=== PATIENT | female | born 1950 | race African-American/Black ===

== ENCOUNTER 2024-04-07 14:53 | Emergency (ER) | payer MEDICARE, SELFPAY ==
[2024-04-07 15:35] VITALS: BP 156/102; PULSE 75; RESP 16; TEMP 36.1; O2SAT 98; BMI 25.8
--- NOTE | 2024-04-07 15:36 | ED.GENADULT ---
HPI - General Adult General Chief complaint: Nausea/Vomiting/Diarrhea Stated complaint: took someone else meds vomiting high bp Related Data Previous Rx's ?Medication ?Instructions ?Recorded cefuroxime axetil 250 mg tablet 250 mg PO BID #14 tabs 04/09/24 meclizine 50 mg tablet 50 mg PO BID PRN dizziness #10 tabs 04/09/24 Allergies Allergy/AdvReac Type Severity Reaction Status Date / Time No Known Allergies Allergy Verified 04/08/24 19:11 [facility] Past Medical History Medical History HTN (hypertension) Social History Social History Smoked in Last 30 Days: Yes Use of substances other than those prescribed or required for medical reasons: No Advance Directives: Yes Advance Directives Information Provided: Yes Advance Directives on File: No Do you have a plan to hurt others: No Plan Physical Exam ED Vital Signs: BMI result Body Mass Index 25.8 Course Course Course Narrative: RME, this is a rapid medical exam performed by Maxwell Martinez please refer to primary provider for complete H&P- 74-year-old female presents for evaluation of vomiting and weakness. She reports that she took 600 mg ibuprofen that does not prescribed to her for back pain. She reports shortly after taking it she had vomiting and weakness. She denies any current pain but presents for persistent vomiting. Plan for labs, viral swabs and ODT Zofran Medications Administered Discontinued Medications Generic Name Dose Route Start Last Admin Trade Name Freq PRN Reason Stop Dose Admin Ondansetron HCl 4 mg 04/07/24 15:37 04/07/24 15:41 Ondansetron Odt 4 Mg Tab.Rapdis TRANSLINGU 04/07/24 15:38 4 mg ONCE ONE Administration Medical Decision Making Lab Data 04/07/24 15:58 04/07/24 15:58 Labs: Lab Results 04/07/24 Range/Units 15:58 WBC 6.3 (4.8-10.8) X10*3/uL RBC 5.05 (4.20-5.50) X10*6/uL Hgb 15.6 (12.0-16.0) g/dl Hct 46.6 (37.0-47.0) % MCV 92.3 (80.0-98.0) fL MCH 30.9 (27.0-33.0) pg MCHC 33.5 (31.0-35.0) g/dl RDW 13.4 (11.0-16.0) % Plt Count 260 (160-400) X10*3/uL MPV 9.6 (9.4-12.3) fL Immature Gran % (Auto) 0.2 (0.0-0.4) % Neut % (Auto) 64.2 (45-73) % Lymph % (Auto) 31.5 (20-40) % Craig % (Auto) 3.6 (2-11) % Eos % (Auto) 0.3 (0-4) % Baso % (Auto) 0.2 (0-2) % Lymph # (Auto) 2.0 (1.2-4.9) X10*3/uL Craig # (Auto) 0.2 (0.1-1.2) X10*3/uL Eos # (Auto) 0.0 (0.0-0.4) X10*3/uL Baso # (Auto) 0.0 (0.0-0.2) X10*3/uL Abs Immat Gran (auto) 0.01 (0.00-0.03) X10*3/uL Absolute Neuts (auto) 4.1 (2.0-8.3) x10*3/uL Absolute Nucleated RBC 0.000 (0.0-0.012) X10*3/uL Nucleated RBC % (auto) 0.0 (0.0-0.2) /100WBC Sodium 143 (135-145) mmol/L Potassium 3.8 (3.3-5.1) mmol/L Chloride 107 (96-108) mmol/L Carbon Dioxide 29 (22-29) mmol/L Anion Gap 11 L (12-20) BUN 16 (9-16) mg/dL Creatinine 0.74 (0.5-1.4) mg/dL Estim Creat Clear Calc 66.0 Estimated GFR > 60 Random Glucose 107 (60-115) mg/dL Calcium 10.3 H (8.4-10.2) mg/dL Total Bilirubin 0.8 (0.0-1.0) mg/dL AST 23 (5-31) U/L ALT 10 (0-31) U/L Alkaline Phosphatase 67 (39-117) U/L Total Protein 8.3 H (6.5-8.0) g/dL Albumin 4.2 (3.5-5.0) g/dL Lipase 15 (8-78) U/L Influenza Type A (PCR) NEGATIVE (Negative) Influenza Type B (PCR) NEGATIVE (Negative) RSV RNA Qual (PCR) NEGATIVE (Negative) SARS-CoV-2 RNA (RT-PCR) NEGATIVE (Negative) Discharge Plan Discharge Clinical Impression: Nausea Patient Disposition: Left W/O Completing Treatment Prescriptions: No Action cefuroxime axetil 250 mg tablet 250 mg PO BID Qty: 14 0RF meclizine 50 mg tablet 50 mg PO BID PRN (Reason: dizziness) Qty: 10 0RF Discharge Date/Time: 04/07/24 19:42
[2024-04-07] MEDS: Ondansetron ODT 4 MG TAB.RAPDIS TRANSLINGU (15:41)
[2024-04-07 16:03] LABS: Hematocrit 46.6 % (37.0-47.0); Hemoglobin 15.6 g/dl (12.0-16.0); MANUAL DIFF FLAG NO; Mean Corpuscular Hemoglobin 30.9 pg (27.0-33.0); Mean Corpuscular Volume 92.3 fL (80.0-98.0); Red Blood Count 5.05 X10*6/uL (4.20-5.50); White Blood Count 6.3 X10*3/uL (4.8-10.8)
[2024-04-07 16:04] LABS: Basophils Percent Auto 0.2 % (0-2); Eosinophils Percent Auto 0.3 % (0-4); Imm Gran Abs Auto 0.01 X10*3/uL (0.00-0.03); Imm Gran Pct Auto 0.2 % (0.0-0.4); Lymphocytes Percent Auto 31.5 % (20-40); Mean Corpuscular HGB Conc 33.5 g/dl (31.0-35.0); Mean Platelet Volume 9.6 fL (9.4-12.3); Monocytes Absolute Auto 0.2 X10*3/uL (0.1-1.2); Monocytes Percent Auto 3.6 % (2-11); Neutrophils Absolute Auto 4.1 x10*3/uL (2.0-8.3); Neutrophils Percent Auto 64.2 % (45-73); Platelet Count 260 X10*3/uL (160-400); Red Cell Distribution Width 13.4 % (11.0-16.0)
[2024-04-07 16:25] LABS: Alanine Aminotransferase 10 U/L (0-31); Albumin Level 4.2 g/dL (3.5-5.0); Alkaline Phosphatase 67 U/L (39-117); Anion Gap 11 (12-20); Aspartate Amino Transferase 23 U/L (5-31); Bilirubin Total 0.8 mg/dL (0.0-1.0); Blood Urea Nitrogen 16 mg/dL (9-16); Calcium 10.3 mg/dL (8.4-10.2); Carbon Dioxide 29 mmol/L (22-29); Chloride 107 mmol/L (96-108); Estimated Glomerular Filt Rate > 60; Glucose Random 107 mg/dL (60-115); Lipase 15 U/L (8-78); Potassium 3.8 mmol/L (3.3-5.1); Sodium 143 mmol/L (135-145); Total Protein 8.3 g/dL (6.5-8.0)
[2024-04-07 16:45] LABS: Influenza A PCR NEGATIVE (Negative); Influenza B PCR NEGATIVE (Negative); Resp Syncy Virus RNA Qual PCR NEGATIVE (Negative); SARS COV2 PCR INHOUSE NEGATIVE (Negative)
== END 2024-04-07 19:42 | disposition left against medical advice (07) ==
LOC: HO.ED 19:41
PROVIDERS: Physician Assistant; Emergency Provider Emergency Medicine; PCP Internal Medicine
DX: R11.2 Nausea with vomiting, unspecified (principal); R53.1 Weakness; Z03.818 Encounter for observation for suspected exposure to other biological agents ruled out
CPT/HCPCS: 0241U; 36415; 80053; 83690; 85025; 99281; 99283

== ENCOUNTER 2024-04-08 17:43 | Emergency (ER) | payer MEDICARE, SELFPAY ==
--- NOTE | ~2024-04-08 | CT_ITS ---
CLINICAL HISTORY: dizziness CT of the head without intravenous contrast Comparison: None Findings: The ventricles and sulci are prominent, consistent with generalized cerebral parenchymal volume loss. The ventricles are symmetric and the basilar cisterns are intact. Mild periventricular, deep and subcortical white matter hypodensities are nonspecific but statistically reflect the sequela of chronic small vessel ischemic change. No intracranial hemorrhage, extra-axial fluid collection, midline shift or mass-effect is evident. No evidence of acute large vessel or territorial ischemia. Brainstem and cerebellum unremarkable. Vascular calcifications indicate intracranial atherosclerosis. The imaged portion of the paranasal sinuses are clear. No mastoid effusions are demonstrated. The orbital contents are unremarkable. Calvarium is intact. Impression: 1. No CT evidence of acute intracranial abnormality. 2. Cerebral volume loss, intracranial atherosclerotic disease and mild sequela of chronic small vessel ischemic disease. This document has been electronically signed by: Olegario Harley MD on 04/08/2024 20:14:27
--- NOTE | 2024-04-08 19:05 | ED_ITS ---
HPI - General Adult General Chief complaint: General Medical Stated complaint: dizziness/was here last night Time Seen by Provider: 04/09/24 01:20 Source: patient Mode of arrival: ambulatory Limitations: no limitations History of Present Illness ED Provider: Dr. Yamilet Ayon HPI narrative: Patient comes to the emergency room complaining of 1 month of intermittent dizziness. Patient describes dizziness as unsteadiness. Patient states that sometimes it happens when she stands up, sometimes when she is laying down. Patient states her symptoms are not new, present for a month. At this time, patient has no dizziness. Patient denies any fall, denies being on blood thinners. Related Data Previous Rx's ?Medication ?Instructions ?Recorded cefuroxime axetil 250 mg tablet 250 mg PO BID #14 tabs 04/09/24 meclizine 50 mg tablet 50 mg PO BID PRN dizziness #10 tabs 04/09/24 Allergies Allergy/AdvReac Type Severity Reaction Status Date / Time No Known Allergies Allergy Verified 04/08/24 19:11 Review of Systems 2 Review of Systems: Constitutional : No Weight loss, No Fever, No Chills, No Night Sweats, No Fatigue, No Malaise ENT/Mouth : No Hearing loss, No Ear Pain, No Nasal Congestion, No Sinus Pain, No Hoarseness, No sore throat, No Rhinorrhea, No Swallowing Difficulty Eyes: No Eye Pain, No Swelling, No Redness, No Foreign Body, No Discharge, No Vision Changes Cardiovascular : No Chest Pain, No SOB, No Dyspnea on Exertion, No Orthopnea, No Edema, No Palpitations Respiratory : No Cough, No Sputum, No Wheezing, No Smoke Exposure, No Dyspnea Gastrointestinal : No Nausea, No Vomiting, No Diarrhea, No Constipation, No abdominal Pain, No Hematochezia, No Melena Genitourinary : no irregular bleeding, No Dysuria, No Urinary Frequency, No Hematuria, No Urinary Incontinence, No Urgency, No Flank Pain, No Urinary Flow Changes, No Hesitancy Musculoskeletal : No joint pain, No Myalgias, No Joint Swelling Skin : No Skin Lesions, No rash Neuro : No Weakness, No Numbness, No Paresthesias, No Loss of Consciousness, complaining of Dizziness, No Headache Psych : No Anxiety/Panic, No Depression, No SI/HI/AH/VH, No Social Issues, Heme/Lymph: No Bruising, No Bleeding,No Lymphadenopathy Endocrine : No Polyuria, No Polydipsia, No Temperature Intolerance [facility] Past Medical History Medical History HTN (hypertension) Social History Social History Smoked in Last 30 Days: Yes Use of substances other than those prescribed or required for medical reasons: No Advance Directives: Yes Advance Directives Information Provided: Yes Advance Directives on File: No Do you have a plan to hurt others: No Plan Physical Exam ED Vital Signs: Vital Signs - 24 hr 04/08/24 19:08 04/08/24 23:26 04/09/24 01:38 Temperature 98.7 F 98.5 F Pulse Rate 89 90 83 Respiratory Rate 16 20 Blood Pressure 144/87 H 125/87 167/113 H Pulse Oximetry 98 97 Oxygen Delivery Method Room Air Room Air 04/09/24 01:42 04/09/24 01:43 Temperature Pulse Rate 84 108 H Respiratory Rate Blood Pressure 154/92 H 132/105 H Pulse Oximetry Oxygen Delivery Method BMI result Body Mass Index 22.0 Const Other: Appearance: Alert. Oriented X3. No acute distress. Eyes: Pupils equal, round and reactive to light. ENT: Pharynx normal. Neck: Normal inspection. Neck supple. No lymph nodes noted. No crepitus CVS: Normal heart rate and rhythm. Pulses normal. Normal S1 and S2 Respiratory: No respiratory distress. Breath sounds normal. No Wheezing. No rales Abdomen: Soft and nontender. No rigidity. No distention. Skin: Skin warm and dry. Normal skin color. Normal skin turgor. Extremities: No lower extremity edema. No Lacerations. No Rash Neuro: Oriented X 3. No motor deficit. No sensory deficit. Moving all extremities. No slurred speech. CN 2 through 12 grossly intact Psych: calm, cooperative, normal affect NIH Stroke Scale Internal: Initial- Upon Arrival Time: 19:07 Level of Consciousness: Alert Level of Consciousness Questions: Answers both questions correctly Level of Consciousness Commands: Performs both tasks correctly Best Gaze: Normal Visual: No visual loss Facial Palsy: Normal Motor Arm (Right): No drift Motor Arm (Left): No drift Motor Leg (Right): No drift Motor Leg (Left): No drift Limb Ataxia: Absent Sensory: Normal Best Language: No aphasia Dysarthia: Normal Extinction and Inattention: No abnormality Score: 0 Course Course Course Narrative: This is a rapid medical exam performed by Humera Smith NP: Additional HPI, ROS, PE not included below will be deferred to primary provider. Patient is a 74-year-old female presenting with complaint of intermittent dizziness. Was here yesterday but left from the without completing treatment. Called PCP today who told patient to return for CT head. Dizziness occurs with position changes. NIHSS 0. Plan: EKG, labs, viral serology, CT head Medications Administered Discontinued Medications Generic Name Dose Route Start Last Admin Trade Name Frejayde PRN Reason Stop Dose Admin Cefuroxime Axetil 250 mg 04/09/24 01:33 04/09/24 01:46 Cefuroxime Axetil 250 Mg Tablet PO 04/09/24 01:34 250 mg ONCE ONE Administration Meclizine HCl 50 mg 04/09/24 01:33 04/09/24 01:46 Meclizine Hcl 25 Mg Tablet PO 04/09/24 01:34 50 mg ONCE ONE Administration Medical Decision Making Medical Decision Making [facility] Narrative: My interpretation of labs: Normal hematology, normal chemistry, normal troponin, serology negative for influenza COVID and RSV My interpretation of EKG: Normal sinus rhythm, heart rate 64, no ST segment depression or elevation, no T-wave inversion, QTC [address] scan, no obvious abnormality. Patient's symptoms have been intermittent for over a month. No obvious CT scan findings. Patient eventually will likely need a referral to Neurology through her primary care physician. Patient does have a UTI. Unlikely that this is causing patient's symptoms. However, since patient is symptomatic we will go ahead and treat with antibiotics. Also given meclizine. Orthostatic vitals were positive, a 20 mmHg drop from sitting to standing. However, patient did not report any dizziness. IV fluids were ordered but patient would like to be discharged home. Discussed with the patient that she needs to increase her fluid intake, agrees with plan. Differential Diagnosis Differential Diagnoses: The differential diagnosis associated with the presentation includes (UTI, orthostatic hypotension, vertigo, BPPV) Admission/Observation Consideration of admission/observation: Escalation of care including admission/observation considered (Given patient's symptoms and age, observation was considered.) Lab Data [facility] Lab Attestation statement: I reviewed the patient's lab results. 04/08/24 19:35 04/08/24 19:35 Labs: Lab Results 04/08/24 Range/Units 19:35 WBC 6.0 (4.8-10.8) X10*3/uL RBC 5.14 (4.20-5.50) X10*6/uL Hgb 16.1 H (12.0-16.0) g/dl Hct 47.2 H (37.0-47.0) % MCV 91.8 (80.0-98.0) fL MCH 31.3 (27.0-33.0) pg MCHC 34.1 (31.0-35.0) g/dl RDW 13.2 (11.0-16.0) % Plt Count 269 (160-400) X10*3/uL MPV 9.8 (9.4-12.3) fL Immature Gran % (Auto) 0.3 (0.0-0.4) % Neut % (Auto) 45.9 (45-73) % Lymph % (Auto) 47.4 H (20-40) % Morrill % (Auto) 5.3 (2-11) % Eos % (Auto) 0.8 (0-4) % Baso % (Auto) 0.3 (0-2) % Lymph # (Auto) 2.8 (1.2-4.9) X10*3/uL Morrill # (Auto) 0.3 (0.1-1.2) X10*3/uL Eos # (Auto) 0.1 (0.0-0.4) X10*3/uL Baso # (Auto) 0.0 (0.0-0.2) X10*3/uL Abs Immat Gran (auto) 0.02 (0.00-0.03) X10*3/uL Absolute Neuts (auto) 2.7 (2.0-8.3) x10*3/uL Absolute Nucleated RBC 0.000 (0.0-0.012) X10*3/uL Nucleated RBC % (auto) 0.0 (0.0-0.2) /100WBC PT 12.1 (10.9-12.4) SEC INR 1.0 (0.9-1.1) Sodium 144 (135-145) mmol/L Potassium 3.4 (3.3-5.1) mmol/L Chloride 105 (96-108) mmol/L Carbon Dioxide 30 H (22-29) mmol/L Anion Gap 12 (12-20) BUN 17 H (9-16) mg/dL Creatinine 0.85 (0.5-1.4) mg/dL Estim Creat Clear Calc 52.7 Estimated GFR > 60 Random Glucose 121 H (60-115) mg/dL Calcium 9.9 (8.4-10.2) mg/dL Total Bilirubin 0.8 (0.0-1.0) mg/dL AST 22 (5-31) U/L ALT 16 (0-31) U/L Alkaline Phosphatase 62 (39-117) U/L Troponin I High Sens < 2.7 (<3.5-17.0) ng/L Total Protein 8.1 H (6.5-8.0) g/dL Albumin 4.2 (3.5-5.0) g/dL Urine Color Dark Yellow Urine Appearance Cloudy Urine pH 5.5 (5.0-9.0) Ur Specific [place] 1.025 (1.005-1.025) Urine Protein Negative (Neg-Trace) mg/dL Urine Glucose (UA) Negative (Negative) mg/dL Urine Ketones Negative (Negative) mg/dL Urine Blood Trace H (Negative) Urine Nitrite Negative (Negative) Ur Leukocyte Esterase Moderate (2+) H (Negative) Urine RBC 3-5 H (0-2) /HPF Urine WBC 21-50 H (0-5) /HPF Ur Squamous Epith Cells 6-10 (0-2) /HPF Urine Bacteria 4+ (None Seen) Hyaline Casts 0-2 (0-2) /LPF Influenza Type A (PCR) NEGATIVE (Negative) Influenza Type B (PCR) NEGATIVE (Negative) RSV RNA Qual (PCR) NEGATIVE (Negative) SARS-CoV-2 RNA (RT-PCR) NEGATIVE (Negative) Discharge Plan Discharge Clinical Impression: Dizziness, Acute UTI, Orthostatic hypotension Patient Disposition: Home, Self-Care Instructions: Dizziness (ED), Urinary Tract Infection in Older Adults (ED), Hypotension (ED) Additional Instructions: Please follow-up with your primary care physician tomorrow. If you have any worsening or new symptoms, please return to the emergency room or call 911 Prescriptions: New cefuroxime axetil 250 mg tablet 250 mg PO BID Qty: 14 0RF meclizine 50 mg tablet 50 mg PO BID PRN (Reason: dizziness) Qty: 10 0RF Print Language: Kyrgyz
--- NOTE | 2024-04-08 19:07 | ECG_ITS ---
Test Reason : dizzy Blood Pressure : */* mmHG Vent. Rate : 73 BPM Atrial Rate : 73 BPM P-R Int : 170 ms QRS Dur : 64 ms QT Int : 366 ms P-R-T Axes : 48 -1 111 degrees QTcB Int : 403 ms Normal sinus rhythm with sinus arrhythmia Inferior infarct , age undetermined Anterior infarct , age undetermined Abnormal ECG No previous ECGs available Referred By: Brie Smith Electronically Signed By: DALE RUVALCABA MD
[2024-04-08 19:08] VITALS: BP 144/87; PULSE 89; RESP 16; TEMP 37.1; O2SAT 98; BMI 22.0
[2024-04-08 19:47] LABS: MANUAL DIFF FLAG NO
[2024-04-08 19:54] LABS: Appearance Urine Cloudy; Color Urine Dark Yellow; Glucose Urine UA Negative (Negative); Leukocyte Esterase Urine Moderate (2+) (Negative); Nitrite Urine Negative (Negative); PH 5.5 (5.0-9.0); Specific Gravity - Urine 1.025 (1.005-1.025); UMIC TRIGGER UACC YES; Urine Blood Trace (Negative); Urine Ketones Negative (Negative); Urine Protein Negative (Neg-Trace)
[2024-04-08 19:55] LABS: Prothrombin Time 12.1 SEC (10.9-12.4)
[2024-04-08 19:58] LABS: Basophils Percent Auto 0.3 % (0-2); Eosinophils Absolute Auto 0.1 X10*3/uL (0.0-0.4); Eosinophils Percent Auto 0.8 % (0-4); Hematocrit 47.2 % (37.0-47.0); Hemoglobin 16.1 g/dl (12.0-16.0); Imm Gran Abs Auto 0.02 X10*3/uL (0.00-0.03); Imm Gran Pct Auto 0.3 % (0.0-0.4); Lymphocytes Absolute Auto 2.8 X10*3/uL (1.2-4.9); Lymphocytes Percent Auto 47.4 % (20-40); Mean Corpuscular HGB Conc 34.1 g/dl (31.0-35.0); Mean Corpuscular Hemoglobin 31.3 pg (27.0-33.0); Mean Corpuscular Volume 91.8 fL (80.0-98.0); Mean Platelet Volume 9.8 fL (9.4-12.3); Monocytes Absolute Auto 0.3 X10*3/uL (0.1-1.2); Monocytes Percent Auto 5.3 % (2-11); Neutrophils Absolute Auto 2.7 x10*3/uL (2.0-8.3); Neutrophils Percent Auto 45.9 % (45-73); Platelet Count 269 X10*3/uL (160-400); Red Blood Count 5.14 X10*6/uL (4.20-5.50); Red Cell Distribution Width 13.2 % (11.0-16.0)
[2024-04-08 20:00] LABS: Bacteria Urine 4+ (None Seen); Hyaline Casts Urine 0-2 /LPF (0-2); UACC Culture Trigger YES; WBC Urine 21-50 /HPF (0-5)
[2024-04-08 20:04] LABS: Alanine Aminotransferase 16 U/L (0-31); Albumin Level 4.2 g/dL (3.5-5.0); Alkaline Phosphatase 62 U/L (39-117); Anion Gap 12 (12-20); Aspartate Amino Transferase 22 U/L (5-31); Bilirubin Total 0.8 mg/dL (0.0-1.0); Blood Urea Nitrogen 17 mg/dL (9-16); Calcium 9.9 mg/dL (8.4-10.2); Carbon Dioxide 30 mmol/L (22-29); Chloride 105 mmol/L (96-108); Creatinine Clr Calc Pharmacy 52.7; Estimated Glomerular Filt Rate > 60; Glucose Random 121 mg/dL (60-115); Potassium 3.4 mmol/L (3.3-5.1); Sodium 144 mmol/L (135-145); Total Protein 8.1 g/dL (6.5-8.0)
[2024-04-08 20:13] LABS: Troponin-I High Sensitivity < 2.7 ng/L (<3.5-17.0)
[2024-04-08 20:27] LABS: Influenza A PCR NEGATIVE (Negative); Influenza B PCR NEGATIVE (Negative); Resp Syncy Virus RNA Qual PCR NEGATIVE (Negative); SARS COV2 PCR INHOUSE NEGATIVE (Negative)
--- OUTSIDE RECORDS SUMMARY | 2024-04-08 22:35 | XMS_ITS | Encounter Summary ---
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 Name Role Phone Bao Woodson MD Primary Care Provider [phone] Reason for Visit * Reason Onset Date Comments Vertigo 04/08/2024 Encounter Details Date Type Department Care Team (Late st Contact Info) Description 04/08/2024 Nurse Triage Adult Medicine [address] [phone] Bao Woodson MD [address] [place] [id number] Vertigo Social History Tobacco Use Types Packs/Day Years Used Date Smoking Tobacco: Every Day Smokeless Tobacco: Never Alcohol Use Standard Drinks/Week Comments Yes 0 (1 standard drink = 0.6 oz pur e alcohol) Sex and Gender Information Value Date Recorded Sex Assigned at Not on file Gender Identity Not on file Sexual Orientation Not on file documented as of this encounter Progress Notes * Leticia Smith RN - 04/08/2024 4:41 PM EST Pt went to [facility] ER yesterday and she left before she could be evaluated. She was instructed to take her mom back to the ER for further evaluation and treatment. She is in agreement with this plan. Reason for Disposition [1] Dizziness (vertigo) present now AND [2] one or more STROKE RISK FACTORS (i.e., hypertension, diabetes, prior stroke/TIA, heart attack) (Exception: Prior doctor or INSPECTOR [employer]SEM[employer] MECH[employer]ICAL/PA evaluation for this AND nodifferent/worse than usual.) Answer Assessment - Initial Assessment Questions 1. DESCRIPTION: Describe your dizziness. She feels as if she will fall over. 2. VERTIGO: Do you feel like either you or the room is spinning or tilting? yes 3. LIGHTHEADED: Do you feel lightheaded? (e.g., somewhat faint, woozy, weak upon standing) She feels dizzy upon standing. 4. SEVERITY: How bad is it? Can you walk? - MILD: Feels slightly dizzy and unsteady, but is walking normally. - MODERATE: Feels unsteady when walking, but not falling; interferes with normal activities (e.g., school, work). - SEVERE: Unable to walk without falling, or requires assistance to walk without falling. Moderate 5. ONSET: When did the dizziness begin? 1-2 weeks 6. AGGRAVATING FACTORS: Does anything make it worse? (e.g., standing, change in head position) Standing 7. CAUSE: What do you think is causing the dizziness? Unknown 8. RECURRENT SYMPTOM: Have you had dizziness before? If Yes, ask: When was the last time? Whathappened that time? Yes in the past but did not see MD 9. OTHER SYMPTOMS: Do you have any other symptoms? (e.g., earache, headache, numbness, tinnitus, vomiting, weakness) No other symptoms 10. : Is there any chance you are ? When was your last menstrual period? No pt is 74 Protocols used: Dizziness - [id number] * Dianne Joyner MA - 04/08/2024 4:27 PM EST Pt's daughter Caitlyn returning Leticia's call from today. * Leticia Smith RN - 04/08/2024 4:02 PM EST I left a message for Caitlyn to call the office at . * Mercedez Montenegro - 04/08/2024 3:41 PM EST Patient call requires triage: Symptoms patient is presenting: VERTIGO How long has patient had these symptoms?: 2 DAYS For ALL patients calling to schedule any appointment (routine, sick visit, follow up, consult, etc.) in the outpatient setting please ask the following questions: Do you have fever of higher than 101, sore throat with difficulty swallowing or severe shortness ofbreath? no If YES to any of these above symptoms, send a message to triage and do not book. Red dot. If no, an audio or video visit should be booked. Have you had close contact with someone with Coronavirus in the last 14 days? no Have you traveled abroad? no Have you traveled recently to another state outside of [place], [place], [place], [place], [place], [place], [place]? no o If yes, did you quarantine for 14 days or have a negative covid test? no If yes to any of the above, patient is not to be scheduled in office until after 14 day quarantine or negative covid test. If pain or injury related was it due to an accident at work or from a motor vehicle accident? If yes, date of accident/Injury: No If yes, gather 3rd democrat insurance information Third Libertarian Information: not applicable PCP: Bao Woodson MD Payor: / No coverage found. documented in this encounter Plan of Treatment Not on file documented as of this encounter Visit Diagnoses Not on filedocumented in this encounter Care Teams Tape Cutting Machine Operator Relationship Specialty Start Date End Date Bao Woodson MD PCP - General Internal Medicine 11/17/13 documented as of this encounter
--- OUTSIDE RECORDS SUMMARY | 2024-04-08 22:35 | XMS_ITS ---
Author Name Acacia Licea NP Address [address] [place] [address] Phone [phone] Organization [facility] Care Team Providers Care Compliance Review Specialist Name Role Phone Acacia Licea Unavailable [phone] Joy Lawton Unavailable [phone] Unavailable Unavailable Unavailable Reason for Referral Not Available Allergies, adverse reactions, alerts No known allergies History of medication use Medication Class Instructions Start Date End Date Lisinopril 40 mg Tab TAKE 1 TABLET BY [facility] DAILY 2022-05-01 No Data Available PARoxetine 40 mg Tab TAKE 1 TABLET BY [facility] EVERY MORNING 2022-05-01 No Data Available Vitamin D (Ergocalciferol) 1 .25 mg (02433 UT) Cap TAKE 1 CAPSULE BY MOUTH 1 TIME A WEEK 2023-06-29 No Data Available hydroCHLOROthiazide 25 mg Tab TAKE 1 TAB LET BY MOUTH DAILY 2023-09-16 No Data Available Aspirin 81 mg Tab delayed rel take 1 tab let orally once daily 2023-10-15 No Data Available Problem List Problem Status Onset Date Resolved Date Major depressive disorder, recurrent Active 2022 N/A Essential hypertension Active 2022-10-23 N/A Osteopenia Active 2023-10-15 N/A Other problems related to [facility] facilities and other health care Active 2023-10-15 N/A Stage 3a chronic kidney disease (CKD) Active 06-21-00 N/A Encounters Encounters Type Facility Date of Service Diagnosis/Co mplaint New patient,40-59min; chronic exacerbation, 2 stable chronic or 1 acute illness add add modifier 95 for video (do not use for phone, instead use [id number]) [facility] 10[place]22/2022 Major depressive disorder, recurrent, unspecifiedEssential (primary) hypertensionOther muscle spasmInsomnia, unspecified New patient,40-59min; chronic exacerbation, 2 stable chronic or 1 acute illness add add modifier 95 for video (do not use for phone, instead use 82586-73) [facility] 10[place]22/2022 New patient,40-59min; chronic exacerbation, 2 stable chronic or 1 acute illness add add modifier 95 for video (do not use for phone, instead use 03977-54) [facility] 10/22/2022 New patient,40-59min; chronic exacerbation, 2 stable chronic or 1 acute illness add add modifier 95 for video (do not use for phone, instead use 47672-40) [facility] 10/22/2022 New patient,40-59min; chronic exacerbation, 2 stable chronic or 1 acute illness add add modifier 95 for video (do not use for phone, instead use 28328-85) [facility] 10/22/2022 New patient,40-59min; chronic exacerbation, 2 stable chronic or 1 acute illness add add modifier 95 for video (do not use for phone, instead use 30034-21) [facility] 10/22/2022 New patient,40-59min; chronic exacerbation, 2 stable chronic or 1 acute illness add add modifier 95 for video (do not use for phone, instead use 63374-02) [facility] 10/22/2022 New patient,40-59min; chronic exacerbation, 2 stable chronic or 1 acute illness add add modifier 95 for video (do not use for phone, instead use 58502-61) [facility] 10/22/2022 Estab. patient 30-39min; chronic exacerbation, 2 stable chronic or 1 acute illness add add modifier 95 for video, (do not use for phone, instead use 82968-45) [facility] 10/15/2023 Major depressive disorder, recurrent, unspecifiedChronic kidney disease, stage 3aHypertensive chronic kidney disease w stg 1-4/unsp chr kdnyOth disrd of bone density and structure, unspecified siteOther problems related to medical facilities and other health care Estab. patient 30-39min; chronic exacerbation, 2 stable chronic or 1 acute illness add add modifier 95 for video, (do not use for phone, instead use 94584-56) [facility] 10/15/2023 Estab. patient 30-39min; chronic exacerbation, 2 stable chronic or 1 acute illness add add modifier 95 for video, (do not use for phone, instead use 71440-47) [facility] 10/15/2023 Estab. patient 30-39min; chronic exacerbation, 2 stable chronic or 1 acute illness add add modifier 95 for video, (do not use for phone, instead use 61250-98) [facility] 10/15/2023 Estab. patient 30-39min; chronic exacerbation, 2 stable chronic or 1 acute illness add add modifier 95 for video, (do not use for phone, instead use 15086-23) [facility] 10[place]15/2023 Estab. patient 30-39min; chronic exacerbation, 2 stable chronic or 1 acute illness add add modifier 95 for video, (do not use for phone, instead use 54615-21) [facility] 10[place]15/2023 Estab. patient 30-39min; chronic exacerbation, 2 stable chronic or 1 acute illness add add modifier 95 for video, (do not use for phone, instead use 30793-14) [facility] 10/15/2023 Estab. patient 30-39min; chronic exacerbation, 2 stable chronic or 1 acute illness add add modifier 95 for video, (do not use for phone, instead use 19938-87) [facility] 10[place]15/2023 Estab. patient 30-39min; chronic exacerbation, 2 stable chronic or 1 acute illness add add modifier 95 for video, (do not use for phone, instead use 70307-37) [facility] 10/15/2023 Estab. patient 30-39min; chronic exacerbation, 2 stable chronic or 1 acute illness add add modifier 95 for video, (do not use for phone, instead use 61678-35) [facility] 10/15/2023 Vital Signs Date of Collection Vitals 2022-10-22 10:37:42 Height - 170.18 cmWe ight - 71.21 kgBody Mass Index (BMI) - 24.59 kg/m2BP Diastolic - 78.0 mm[Hg]BP Systolic - 120.0 mm[Hg] 2023-10-15 11:23:41 Height - 167.64 cmWe ight - 71.21 kgBody Mass Index (BMI) - 25.34 kg/m2BP Diastolic - 88.0 mm[Hg]BP Systolic - 138.0 mm[Hg]Pain Scale - 8.0 {score} Social History Social History Social History Observation Description Effec tive Time Current Smoking Status Current every day smoker 2024-04-09 Sex Female History of Procedures Procedures Service Procedure code Service date Servicing provider Phone# New patient,40-59min; chronic exacerbation, 2 stable chronic or 1 acute illness add add modifier 95 for video (do not use for phone, instead use 72037-23) 15604 2022-10-22 No Data Available No Data Availa ble Functional Status Assessed (1170F) 1170F 2022-10-22 No Data Available No Data Avail able Medication List Documented (1159F) 1159F 2022-10-22 No Data Available No Data Arianna ilable Medication Review by prescribing provider or pharmacist documented (1160F) 1160F 2022-10-22 No Data Available No Data Arianna ilable Advance Care Directive Advance care planning discussion documented in the medical record (1158F) 1158F 2022-10-22 No Data Available No Data Availa ble BMI obtained (3008F) 3008F 2022-10-22 No Data Availab le No Data Available SBP < 130 (3074F) 3074F 2022-10-22 No Data Available No Data Available DBP <80 (3078F) 3078F 2022-10-22 No Data Available No Data Available Estab. patient 30-39min; chronic exacerbation, 2 stable chronic or 1 acute illness add add modifier 95 for video, (do not use for phone, instead use 53999-39) 97557 2023-10-15 No Data Available No Data Availa ble Medication Review by prescribing provider or pharmacist documented (1160F) 1160F 2023-10-15 No Data Available No Data Arianna ilable Medication List Documented (1159F) 1159F 2023-10-15 No Data Available No Data Arianna ilable Functional Status Assessed (1170F) 1170F 2023-10-15 No Data Available No Data Avail able SBP 130-139 (3075F) 3075F 2023-10-15 No Data Availabl e No Data Available DBP 80-89 (3079F) 3079F 2023-10-15 No Data Available No Data Available BMI obtained (3008F) 3008F 2023-10-15 No Data Availab le No Data Available Pain Assessment - Pain Documented (1125F) 1125F 2023-10-15 No Data Available No Data Availa ble Advance Care Directive Advance care planning discussion documented in the medical record (1158F) 1158F 2023-10-15 No Data Available No Data Availa ble Advance care planning discussed and documented ? advance care plan or surrogate decision-maker was documented in the medical record. (1123F) 1123F 2023-10-15 No Data Available No Data Availa ble Functional Status Functional Category Effective Dates ADL: Bathing Independent , D ressing Independent , Eating Independent , Ambulation Independent , Transferring Independent and Toileting Independent 2022-10-23 IADL: Medication Independent , Meal Prep Independent , Shopping Needs Assistance , Driving or Public Transport Needs Assistance and Housework Needs Assistance 2022-10-23 Falls in last 6 Months: Near Fall 8-10 Social Supports - # of Inter actions with Friends/Family in a typical week: 2022-10-23 DME: Walker, Cane, Shower Chair Mental Status Status Date Cognition Status: Alert and Oriented to Person, Place, and Time 2023-10-15 Assessments Date of Service Assessments 2022-10-22 10:37:42 Essential hypertensi onMuscle spasms of both lower extremitiesMajor depressive disorder, recurrentInsomnia 2023-10-15 11:23:41 Major depressive dis order, recurrentStage 3a chronic kidney disease (CKD)Essential hypertensionOsteopeniaOther problems related to medical facilities and other health care Plan of Care Date of Service Plans 2022-10-22 10:37:42 Medication Review by prescribing provider or pharmacist documented (1160F)Medication List Documented (1159F)Functional Status Assessed (1170F)Advance Care Directive Advance care planning discussion documented in the medical record (1158F)BMI obtained (3008F)SBP < 130 (3074F)DBP <80 (3078F)Televideo new patient,40-59min; chronic exacerbation, 2 stable chronic or 1 acute illness add modifier 95Advance care planning discussed and documented ? advance care plan or surrogate decision-maker was documented in the medical record. (1123F)Advance care planning discussed and documented in the medical record ? beneficiary/patient did not wish to or was unable to provide an advance care plan or name a surrogate decision-maker. (1124F)Continue to see PCP. Follow-up with [facility] as needed for any acute or disease education needs that may arise.cont lisinoprillow na dietmtr bpfu w PCP, encouraged pt to make apptencouraged pt to make appt w pcp for lab work, and eval of muscle spasmsdtr to call todaycont paroxetinemtr symptomsfu w MDused to be on trazodone, doesnt like howit makes her feel so she stoppeddiscussed alternative medications to mention to pcp at fu appt 2023-10-15 11:23:41 Televideo 30-39min; chronic exacerbation, 2 stable chronic or 1 acute illness add modifier 95Functional Status Assessed (1170F)Pain Assessment - NO pain documented (1126F)BMI obtained (3008F)Advance Care Directive Advance care planning discussion documented in the medical record (1158F)Advance care planning discussed and documented ? advance care plan or surrogate decision-maker was documented in the medical record. (1123F)SBP 130-139 (3075F)DBP 80-89 (3079F)Medication List Documented (1159F)Medication Review by prescribing provider or pharmacist documented (1160F)Continue to see PCP. Follow-up with [facility] as needed for any acute or disease education needs that may arise.RX: ParoxetineNotify provider with any changes in behavior, difficulty sleeping, or new/worsening depressive symptoms.Continue to follow up with PCP.Avoid nephrotoxic medications. Recommend talking to PCP regarding HCTZ- stopping/ changing medication. Continue to follow up with PCP.RX: HCTZ, Lisinopril Encourage low sodium diet. Encouraged daily blood pressure checks and tracking. Instructed patient to notify CB or PCP if blood pressure >140/90 or <90/50.Continue to follow up with PCP.Weight bearing exercises such as walking. Continue to follow up with PCP.HYPERTENSION CONTINGENCY PLANMember to call for the following symptoms: BP >180/100??/ Chest pain??/ HeadachePlanned intervention: Assess for signs of end organ damage (headache, vision changes, chest pain)/ Senior Production Planner on proper BP monitoring technique and reassess/ Add amlodipine 5mg daily/ Encourage low sodium diet/ Encourage medication adherenceAt least 50% of time spent counseling patient, discussing diagnosis, treatment plan, compliance, and coordinating follow up care. Goals Date Goal 2023-10-15 Continue taking medi cations as directed and keep all follow up appointments with established PCP and Specialist. Health Concerns Date Concern 2023-10-15 Visit completed in g audio/video. Patient/Guardian agreed to visit via telehealth. Today, patient has chief complaint of: follow up care and comprehensive review.Reviewed Allergies, Medications, Active Medical conditions, past medical/surgical history, Social history. 2023-10-15 Most recent hospital stay(s) or ER visit(s) and precipitating factors: Member reports overnight hospitalization
--- OUTSIDE RECORDS SUMMARY | 2024-04-08 22:35 | XMS_ITS | Clinical Summary ---
Author Organization [facility] it Address [address] [place] [address] Care Team Providers Care Family Service Caseworker Name Role Phone Bao Woodson MD Primary Care Provider [phone] Allergies Active Allergy Reactions Criticality Noted Date Comments Amlodipine 04/28/2017 Dizziness, Fatigue Other 10/20/2014 Seasonal Medications Medication Sig Dispensed Refills Start Date End Date Status hydroCHLOROthiazide (HYDRODIURIL) 25 mg tablet Take 1 tablet (25 mg total) by mouth 1 (one) time each day. 09/16/2023 Active lisinopril (PRINIVIL,ZESTRIL) 40 mg tablet Take 1 tablet (40 mg total) by mouth 1 (one) time each day. 09/16/2023 Active ergocalciferol (VITAMIN D-2) 1,250 mcg (50,000 unit) capsule Take 1 Capsule by mouth once a week. 06/29/2023 Active Active Problems Problem Noted Date Diagnosed Date Degenerative joint disease (DJD) of lumbar spine 03/14/2024 DJD (degenerative joint disease) of knee 024 Essential hypertension, benign 03/14/2024 Osteopenia 04/04/2022 CKD (chronic kidney disease) stage 3, GFR 30-59 ml/min 03/24/2022 Overweight (BMI 25.0-29.9) 03/19/2022 Prediabetes 03/19/2022 Vitamin D deficiency 02/08/2019 Anxiety and depression 05/12/2018 Insomnia 05/12/2018 Polyp of sigmoid colon 08/21/2017 Encounters Date Type Department Care Team Description 04/08/2024 Nurse Triage Adult Medicine [address] [phone] Bao Woodson MD Vertigo 04/07/2024 Nurse Triage Adult Medicine [address] [phone] Bao Woodson MD Vomiting; Back Pain; Hypertension from Last 3 Months Immunizations Name Administration Dates Next Due Influenza trivalent, 0.5mL ( Fluad) 65yo and older 03/31/2021,01/20/2020,02/15/2018,2016,03/04/2016,11/30/2014 Pneumococcal conjugate 13 va lent (Prevnar 13, PCV13) 2mo and older 02/23/2017 Pneumococcal conjugate 20 va lent (Prevnar 20, PCV 20) 2mo and older 03/14/2022 Td Tetanus diptheria (Tdvax) 7yo and older 02/23/2017 Surgical History Surgery Date Site/Laterality Comments BREAST BIOPSY PROCEDURE: BX BREAST; PERC NEEDLE CORE W/IMAG GUID; COMMENT: LT. BREAST BX-BENIGN COLONOSCOPY 09/03/2010 PROCEDURE: HISTORICAL COLONOSCOPY; COMMENT: [facility]. Normal mucosa. Poylp in sigmoid colon. No diverticula and no hemorrhoids. F/u in 5 years. 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 ( DJD) of lumbar spine DX:Degenerative joint diseas e (DJD) of lumbar spine Family History Medical History Relation Name Comments Hypertension Brother Other cancer Daughter leukemia(fatal) Hypertension Father Hypertension Mother Diabetes Sister 1 Hypertension Sister 2 Breast cancer Neg Hx Relation Name Status Comments Brother Daughter Father Mother Sister 1 Sister 2 Social History Tobacco Use Types Packs/Day Years Used Date Smoking Tobacco: Every Day Smokeless Tobacco: Never Alcohol Use Standard Drinks/Week Comments Yes 0 (1 standard drink = 0.6 oz pur e alcohol) Sex and Gender Information Value Date Recorded Sex Assigned at Not on file Gender Identity Not on file Sexual Orientation Not on file Obstetrics History Last Filed Vital Signs Vital Sign Reading Time Taken Comments Blood Pressure 140/92 09/16/2023 2:00 PM EDT Pulse 68 09/16/2023 2:00 PM EDT Temperature - - Respiratory Rate - - Oxygen Saturation - - Inhaled Oxygen Concentration - - Weight 67.7 kg (149 lb 4.8 oz) 09/16/2023 2:00 P M EDT Height 167.6 cm (5' 6 ) 09/16/2023 2:00 PM EDT Body Mass Index 24.1 09/16/2023 2:00 PM EDT Plan of Treatment Health Maintenance Due Date Last Done Comments Zoster Vaccines (1 of 2) 02/24/1998 Depression Screening 02/22/2022 Falls Risk Assessment 02/22/2022 Social Influencers of Health Screening 02/22/2022 RSV Immunization Patients 60+ Years Old (1 - 1-dose 75+ series) 02/24/2023 COVID-19 Vaccine (2023- season) 2023 03/31/2021, 04/27/2020, 04/06/2020 Influenza Vaccine (#1) 2023 , 01/20/2020, 02/15/2018, Additional history exists Hypertension/CHF/CAD Annual BMP Blood Test 06/21/2024 06/22/2023 DTaP,Tdap,and Td Vaccines (2 - Td or Tdap) 02/23/2027 02/23/2017 Cholesterol Screening (Lipid Panel) 03/14/2027 03/14/2022 Osteoporosis Screening (Bone Density Screening) 04/04/2032 04/04/2022 Hepatitis C Screening Completed 04/08/2017 Breast Cancer Screening Discontinued 10/02/2017 Pneumococcal Vaccine: 65+ Years Completed 03/14/2022, 02/23/2017 HIB Vaccines Aged Out No longer eligi ble based on patient's age to complete this topic HPV Vaccines Aged Out No longer eligi ble based on patient's age to complete this topic Hepatitis A Vaccines Aged Out No long er eligible based on patient's age to complete this topic Hepatitis B Vaccines Aged Out No long er eligible based on patient's age to complete this topic IPV Vaccines Aged Out No longer eligi ble based on patient's age to complete this topic MMR Vaccines Aged Out No longer eligi ble based on patient's age to complete this topic Meningococcal ACWY Vaccine Aged Out N o longer eligible based on patient's age to complete this topic RSV Immunization Patients Under 20 months Aged Out No longer eligible based on patient's age to complete this topic Varicella Vaccines Aged Out No longer eligible based on patient's age to complete this topic Procedures Procedure Name Priority Date/Time Associated Diagnosis Comments ANNUAL BMP BLOOD TEST Routine 06/22/2023 DXA BONE DENSITY STUDY 1+ SITS AXIAL SKEL Routine 04/04/2022 11:02 AM EST Asymptomatic menopausal state LIPID PANEL Routine 03/14/2022 SCR MAMMO BI INCL CAD Routine 10/02/2017 11:04 AM EDT Encounter for screening mammogram for malignant neoplasm of breast HEPATITIS C SCREENING Routine 04/08/2017 from Last 3 Months or Most Recently Relevant to Health Maintenance Results * Annual BMP Blood Test (06/22/2023) Annual BMP Blood Test abstracted Historical Provider MD DANILO Amaya * DXA BONE DENSITY STUDY 1+ SITS AXIAL SKEL (04/04/2022 11:02 AM EST) Anatomical Region Laterality Modality Bone Densitometr y 03/14/2022 12:0 4 PM EST Narrative 04/04/2022 12:40 PM EST BONE DENSITY ? Lumbar Spine T-score is +0.3 ?? (SD relative to 20-29 y/o adult) Z-score is +1.9 ??(SD relative to age matched peers) This is normal by criteria defined by the WHO. Left Hip T-score is -1.9 Z-score is -0.7 This is consistent with osteopenia by criteria defined by the WHO. . Impression: Based on the World Health Organization criteria, Sera Rowland should be classified as having osteopenia. This patient has a 6.1% risk of major osteoporotic fracture and a 2.1% risk of hip fracture over the next 10 years. (World Health Organization Fracture Risk Assessment) [facility] Department of Internal Medicine recommends using National Osteoporosis Foundation (NOF) guidelines in treatment decisions related to osteoporosis. NOF guidelines suggest considering treatment for postmenopausal women and men aged 50 or older presenting with the following: History of hip or vertebral fracture. T-score less than or equal to -2.5 (DXA) at the femoral neck, total hip, or spine, after appropriate evaluation to exclude secondary causes. Low bone mass (T-score between -1.0 and -2.5 at the femoral neck or spine) AND a 10-year probability of a hip fracture greater than or equal to 3% OR a 10-year probability of a major osteoporosis-related fracture greater than or equal to 20% based on the [place]-adapted WHO algorithm Please note that all treatment decisions require clinical judgment and consideration of individual patient factors, including patient preferences, co-morbidities, previous drug use, risk factors not captured in the FRAX model (e.g., frailty, falls, vitamin D deficiency, increased bone turnover, interval significant decline in bone density) and possible under- or over-estimation of fracture risk by FRAX. Procedure Note Sandra Denson MD - 04/20/2023 BONE DENSITY Lumbar Spine T-score is +0.3 (SD relative to 20-29 y/o adult) Z-score is +1.9 (SD relative to age matched peers) This is normal by criteria defined by the WHO. Left Hip T-score is -1.9 Z-score is -0.7 This is consistent with osteopenia by criteria defined by the WHO. . Impression: Based on the World Health Organization criteria, Sera Rowland should beclassified as having osteopenia. This patient has a 6.1% risk of majorosteoporotic fracture and a 2.1% risk of hip fracture over the next 10years. (World Health Organization Fracture Risk Assessment) [facility] Department of Internal Medicine recommendsusing National Osteoporosis Foundation (NOF) guidelines in treatmentdecisions related to osteoporosis. NOF guidelines suggest consideringtreatment for postmenopausal women and men aged 50 or older presentingwith the following: History of hip or vertebral fracture. T-score less than or equal to -2.5 (DXA) at the femoral neck, total hip,or spine, after appropriate evaluation to exclude secondary causes. Low bone mass (T-score between -1.0 and -2.5 at the femoral neck or spine)AND a 10-year probability of a hip fracture greater than or equal to 3% ORa 10-year probability of a major osteoporosis-related fracture greaterthan or equal to 20% based on the [place]-adapted WHO algorithm Please note that all treatment decisions require clinical judgment andconsideration of individual patient factors, including patientpreferences, co-morbidities, previous drug use, risk factors not capturedin the FRAX model (e.g., frailty, falls, vitamin D deficiency, increasedbone turnover, interval significant decline in bone density) and possibleunder- or over-estimation of fracture risk by FRAX. Aishwarya ANNE IMG DXA PROCEDURES * Lipid panel (03/14/2022) LDL/HDL Ratio 3 0 - 4 Triglycerides 97 0 - 150 mg/dL Cholesterol 184 0 - 200 mg/dL HDL 70 40 mg/dL LDL Cholesterol 95 0 - 100 mg/dL Blood Venous blood specimen / Unknown Historical Provider LAB BLOOD ORDERAB LES * SCR MAMMO BI INCL CAD (10/02/2017 11:04 AM EDT) Anatomical Region Laterality Modality Radiographic Ilene ging 02/23/2017 2:30 PM EST Narrative 10/02/2017 12:21 PM EDT This is a summary report. The complete report is available in the patient's medical record. If you cannot access the medical record, please contact the sending organization for a detailed fax or copy. Full field digital screening mammography, reviewed with CAD and compared to previous. ??The breasts are composed of fatty and fibroglandular tissue. ??Metallic biopsy clip within stable nodule at the posterior one third of the superolateral left breast. Parenchymal pattern is unchanged bilaterally. No suspicious mass, architectural distortion or suspicious calcifications are identified. IMPRESSION: : No mammographic evidence of malignancy. BI-RADS 2-benign. 5 year breast cancer risk assessment 1.9 % Lifetime breast cancer risk assessment 5.4 % Breast cancer risk category Low (<15%) Procedure Note Marisela Islas, DO - 03/04/2022 This is a summary report. The complete report is available in thepatient's medical record. If you cannot access the medical record, pleasecontact the sending organization for a detailed fax or copy. Full field digital screening mammography, reviewed with CAD and comparedto previous. The breasts are composed of fatty and fibroglandular tissue.Metallic biopsy clip within stable nodule at the posterior one third ofthe superolateral left breast. Parenchymal pattern is unchangedbilaterally. No suspicious mass, architectural distortion or suspiciouscalcifications are identified. IMPRESSION: : No mammographic evidence of malignancy. BI-RADS 2-benign. 5 year breast cancer risk assessment 1.9 % Lifetime breast cancer risk assessment 5.4 % Breast cancer risk category Low (<15%) Emma ANNE IMG XR PROCEDURES * Hepatitis C Screening (04/08/2017) Hepatitis C Screening abstracted Historical Provider MD DANILO Amaya from Last 3 Months or Most Recently Relevant to Health Maintenance Care Teams Family Service Caseworker Relationship Specialty Start Date End Date Bao Woodson MD PCP - General Internal Medicine 11/17/13
[2024-04-08 23:26] VITALS: BP 125/87; PULSE 90; RESP 20; TEMP 36.9; O2SAT 97
[2024-04-09 01:38] VITALS: BP 167/113; PULSE 83
[2024-04-09 01:42] VITALS: BP 154/92; PULSE 84
[2024-04-09 01:43] VITALS: BP 132/105; PULSE 108
[2024-04-09] MEDS: cefuroxime axetiL 250 MG TABLET PO (01:46)
[2024-04-09] MEDS: Meclizine HCl 25 MG TABLET 50 MG PO (01:46)
[2024-04-09 01:52] VITALS: BP 132/105; PULSE 108; RESP 20; TEMP 36.9; O2SAT 97
== END 2024-04-09 01:53 | disposition home or self-care (01) ==
PROVIDERS: Registered Nurse Emergency; Emergency Provider Emergency Medicine; PCP Internal Medicine
DX: N39.0 Urinary tract infection, site not specified (principal); R42 Dizziness and giddiness; I95.1 Orthostatic hypotension; R94.31 Abnormal electrocardiogram [ECG] [EKG]; Z79.899 Other long term (current) drug therapy; Z03.818 Encounter for observation for suspected exposure to other biological agents ruled out; Z51.81 Encounter for therapeutic drug level monitoring
CPT/HCPCS: 0241U; 70450; 80053; 81001; 84484; 85025; 85610; 87086; 93005; 99284

== ENCOUNTER → 2024-04-08 19:07 | Outpatient (BNV) | payer MEDICARE, SELFPAY | PROVIDERS: PCP Internal Medicine; Visit Provider Radiology Diagnostic Radiology | DX: I67.2 Cerebral atherosclerosis (principal); G31.89 Other specified degenerative diseases of nervous system | CPT/HCPCS: 70450 ==

== ENCOUNTER → 2024-04-08 19:07 | Outpatient (BNV) | payer MEDICARE, SELFPAY | PROVIDERS: Emergency Provider Emergency Medicine; PCP Internal Medicine; Visit Provider Internal Medicine Cardiovascular Disease | DX: R94.31 Abnormal electrocardiogram [ECG] [EKG] (principal) | CPT/HCPCS: 93010 ==